=== PATIENT | female | born 1940 | race Caucasian/White ===

== ENCOUNTER 2021-07-06 11:33 | Inpatient (IN) | payer MEDICARE, MEDICAID, SELFPAY ==
[2021-07-06 11:34] VITALS: BP 113/57; PULSE 86; RESP 15; TEMP 36.4; O2SAT 93
--- NOTE | 2021-07-06 12:35 | CT_ITS ---
STUDY: CT ABDOMEN AND PELVIS WITH CONTRAST REASON FOR EXAM: Female, 81 years old. Chronic diarrhea. UTI. RADIATION DOSAGE (If Supplied By Facility): CTDIvol = ( 17.67 ) mGy, DLP = ( 557.08 ) mGycm TECHNIQUE: Transaxial images were obtained from the dome of the diaphragm to the symphysis pubis without oral contrast. IV 100mL Isovue-300 was administered. Sagittal and coronal images were reconstructed. Individualized dose optimization techniques were used for this CT. COMPARISON: None. FINDINGS: Increased markings with areas of confluence in both lower lobes suggestive of either atelectasis and/or scarring. The visualized portions of the heart are within normal limits. Mild degree of central intrahepatic biliary ductal dilatation. Normal gallbladder and extrahepatic biliary system. 5 mm cyst in the superior aspect of the spleen. There is also a 3.1 cm x 2.6 cm cyst in the anterior midportion of the spleen. There is diffuse atrophy of the pancreas. Normal bilateral adrenal glands. Normal right kidney. Normal left kidney. There is a small hiatal hernia. Diffuse mural thickening of the small bowel loops more prominent in the proximal small bowel loops. There is also evidence of thickening of the left hemicolon suggestive of colitis. The appendix is visualized and appears normal. There is diffuse atherosclerotic calcification of the abdominal aorta and its major visceral fractures, without a demonstrated aneurysm. Normal inferior vena cava. Normal retroperitoneum. Normal urinary bladder. Calcified fibroid uterus. Normal abdominal wall. There are diffuse degenerative changes of the visualized lumbar spine. Status post right total hip replacement. CT/Abdomen/Pelvis W IV Cont ONLY IMPRESSION: Diffuse thickening of the small bowel wall more prominent within jejunal loops. Findings in keeping with colitis of the left hemicolon. Vascular cause should be ruled out. Electronically Signed: Linus Jara MD at 14:10 EST ,
--- NOTE | 2021-07-06 12:37 | ED.VIS.GI ---
HPI HPI - GI History of Present Illness Chief Complaint: Diarrhea Narrative Narrative: Patient presents with her daughter because of diarrhea that she is had for months. She states that she has multiple episodes of loose to watery stool. This is caused her to become weak. Of note, she was recently seen at [facility] on Monday, 3 days ago and placed on antibiotics for urinary tract infection. However, patient has been having multiple episodes of diarrhea for the past few months even before she started antibiotics. Her last dose of antibiotics was in March of last year prior to being put on them this Monday. She denies any fevers or chills but has crampy abdominal pain prior to having an episode of diarrhea. She was going to see the arc welder apprentice, Dr. Alexis, today, but went to the bathroom and had a few episodes of stooling. Her daughter thought that maybe her stool was dark or black. They deny that she has had any hematemesis. No problems with urination. They states that they never saw gastroenterology but instead came here because of her multiple stooling episodes. PFSH PFSH Allergy/AdvReac Type Severity Reaction Status Date / Time No Known Allergies Allergy Verified 07/06/21 11:37 Social History Smoking Status: Unknown if ever smoked ROS ROS ED ROS Narrative Constitutional: No fever, no chills. Generalized weakness. HEENT: No sore throat. No neck pain. No loss of vision. No rhinorrhea. Cardiovascular: No chest pain. No palpitations. No pedal edema. Respiratory: No cough, no shortness of breath. Abdominal: Crampy abdominal pain prior to stooling. No nausea. No vomiting. Multiple episodes of diarrhea over the last few months, at least 3 today. Genitourinary: No dysuria. No hematuria. Musculoskeletal: No myalgias. No arthralgias. Neurologic: No headaches. No dizziness. No lightheadedness. Skin: No rash. No change in color. Psychiatric: No depression. No anxiety. EXAM Physical Exam Narrative Exam Narrative: Afebrile. Vital signs noted. HEENT: Normocephalic. Atraumatic. PERRL, EOMI. Neck soft and supple. No point tenderness or step off. Cardiovascular: Regular rate and rhythm. No murmurs, rubs, or gallops appreciated. Respiratory: No tachypnea. Lungs clear to auscultation bilaterally. Gastrointestinal: Abdomen soft, nontender, with normoactive bowel sounds. No rebound or guarding. Neurological: Awake. Alert. Oriented to person and place. Nonfocal, nonlateralizing. Skin: No rash. Normal color. No pallor. Musculoskeletal: No pedal edema. Full range of motion extremities. Const Vital Signs: 07/06/21 11:34 Temperature 97.6 F L Temperature Source Temporal Pulse Rate 86 Respiratory Rate 15 Blood Pressure 113/57 L Blood Pressure Mean 75 Pulse Ox 93 Oxygen Delivery Method Room Air MDM MDM MDM Narrative Medical decision making narrative: Comprehensive work-up was pursued. I will check her for dehydration but she is not tachycardic. I will check her for an electrolyte abnormality. If she produces a stool sample will be checked for fecal occult blood, ova and parasites, C. difficile, and enteric stool pathogen panel will also be sent. She was started on normal saline 125 mL/h. CBC shows normal white count of 6.6, hemoglobin normal at 14.6. She has a sodium of 144, potassium slightly low at 3.2 with a chloride of 114. BUN low at 4 with a normal creatinine of 0.77. Lipase normal at 99. CT of the abdomen and pelvis does show small bowel wall mural thickening most present in the jejunum. She also has left hemicolonic colitis. They suggest vascular rule out, and I had obtained a lactic acid which is normal at 0.9. Urinalysis shows no evidence of infection. As she was in his office today, I discussed patient with Dr. Alexis. He suggests hydrocortisone 100 mg every 8 hours and admission by the hospitalist for GI consultation. I discussed patient with Dr. Pang. She will be admitted to the general medical floor in stable condition. Lab Data Attestation: I reviewed the patient's lab results. Labs: Laboratory Results - last 24 hr 07/06/21 07/06/21 07/06/21 12:56 12:56 12:56 WBC 6.6 RBC 4.89 Hgb 14.6 Hct 44.6 MCV 91.2 MCH 29.9 MCHC 32.7 RDW Std Deviation 47.3 H RDW Coeff of Jens 14.0 Plt Count 203 MPV 10.9 Immature Gran % (Auto) 0.300 Neut % (Auto) 68.3 Lymph % (Auto) 18.7 L [place] % (Auto) 10.9 H Eos % (Auto) 1.2 Baso % (Auto) 0.6 Absolute Neuts (auto) 4.5 Absolute Lymphs (auto) 1.23 Nucleated RBC % 0 Sodium 144 Potassium 3.2 L Chloride 114 H Carbon Dioxide 27.0 Anion Gap 3 L BUN 4 L Creatinine 0.77 Estim Creat Clear Calc 0.00 Est GFR (MDRD) Af Amer 93 Est GFR (MDRD) Non-Af 77 BUN/Creatinine Ratio 5.2 L Glucose 99 Lactic Acid 0.9 Calcium 9.3 Total Bilirubin 0.40 AST 20 ALT 14 Alkaline Phosphatase 66 Total Protein 5.9 L Albumin 2.8 L Globulin 3.1 Albumin/Globulin Ratio 0.9 Lipase 99 Urine Color Urine Clarity Urine pH Ur Specific [place] Urine Protein Urine Glucose (UA) Urine Ketones Urine Occult Blood Urine Nitrite Urine Bilirubin Urine Urobilinogen Ur Leukocyte Esterase Urine RBC Urine WBC Ur Squamous Epith Cells Urine Bacteria Urine Mucus 07/06/21 14:09 WBC RBC Hgb Hct MCV MCH MCHC RDW Std Deviation RDW Coeff of Jens Plt Count MPV Immature Gran % (Auto) Neut % (Auto) Lymph % (Auto) [place] % (Auto) Eos % (Auto) Baso % (Auto) Absolute Neuts (auto) Absolute Lymphs (auto) Nucleated RBC % Sodium Potassium Chloride Carbon Dioxide Anion Gap BUN Creatinine Estim Creat Clear Calc Est GFR (MDRD) Af Amer Est GFR (MDRD) Non-Af BUN/Creatinine Ratio Glucose Lactic Acid Calcium Total Bilirubin AST ALT Alkaline Phosphatase Total Protein Albumin Globulin Albumin/Globulin Ratio Lipase Urine Color Yellow Urine Clarity Clear Urine pH 7.0 Ur Specific [place] 1.010 Urine Protein Negative Urine Glucose (UA) Normal Urine Ketones Negative Urine Occult Blood Negative Urine Nitrite Negative Urine Bilirubin Negative Urine Urobilinogen Normal Ur Leukocyte Esterase Negative Urine RBC 0 SEEN Urine WBC 0 SEEN Ur Squamous Epith Cells 0-5 SEEN Urine Bacteria RARE Urine Mucus RARE Radiography Diagnostic Testing: Clinical Impression(s) from Imaging Studies Abdomen/Pelvis CT 07/06/21 12:35 IMPRESSION: Diffuse thickening of the small bowel wall more prominent within jejunal loops. Findings in keeping with colitis of the left hemicolon. Vascular cause should be ruled out. Electronically Signed: Linus Jara MD at 14:10 EST , Discharge Plan Dx/Rx/DC Orders Clinical Impression: Colitis, Diarrhea, Hypokalemia, Generalized weakness, Mural thickening of small intestine Disposition Disposition: Acute Care Hospital [facility]
[2021-07-06] MEDS: 0.9% Normal Saline 1,000 ML 125 ML IV ×2 (12:54→20:24)
[2021-07-06 13:12] LABS: Absolute Lymphocyte Count 1.23 X10^3/uL (0.83-4.51); Absolute Neutrophil Count 4.5 X10^3/uL (2.0-7.7); Basophil# 0.04 X10^3/uL; Basophil% 0.6 % (0-1); Eosinophil# 0.08 X10^3/uL; Eosinophils% 1.2 % (0-5); Hematocrit 44.6 % (37-47); Hemoglobin 14.6 g/dL (12.0-15.0); Lymphocyte # 1.23 X10^3/ul (0.83-4.51); Lymphocyte % 18.7 % (19-41); Mean Corp Hgb Conc 32.7 g/dL (32-36); Mean Corpuscular Hgb 29.9 pg (27.0-32.0); Mean Corpuscular Volume 91.2 fL (81-99); Mean Platelet Vol. 10.9 fl (6.2-12.0); Monocyte# 0.72 X10^3/uL; Monocyte% 10.9 % (0-10); NRBC Flagged by Analyzer 0 % (0-5); Neutrophil # 4.49 X10^3/uL (2.7-7.7); Neutrophil % 68.3 % (47-70); Platelet Count 203 K/mm3 (150-450); RBC Distribution Width SD 47.3 fl (35.1-43.9); Red Blood Count 4.89 M/mm3 (4.2-5.4); White Blood Count 6.6 K/mm3 (4.4-11.0)
[2021-07-06 13:24] LABS: ALB/GLOB Ratio 0.9 RATIO (0.9-2.4); AST(SGOT) 20 U/L (15-37); Alanine Aminotransfer ALT/SGPT 14 U/L (13-56); Albumin, Serum 2.8 g/dL (3.2-5.0); Alkaline Phosphatase 66 U/L (45-117); Anion Gap 3 (5-15); BUN 4 mg/dL (7-18); BUN/Creat Ratio 5.2 RATIO (10-20); Calcium,Total 9.3 mg/dL (8.5-10.1); Chloride 114 mmol/L (98-107); Creatinine, Serum 0.77 mg/dL (0.55-1.02); EST Glomerular Filtration Rate 77 mL/min (>60); Est Glom Filt Rate - Afr Amer 93 mL/min (>60); Globulin 3.1 g/dL (2.2-4.2); Glucose 99 mg/dL (74-106); Lipase 99 U/L (73-393); Potassium 3.2 mmol/L (3.5-5.1); Protein, Total 5.9 g/dL (6.4-8.2); Sodium Level 144 mmol/L (136-145)
[2021-07-06 13:34] LABS: Lactic Acid 0.9 mmol/L (0.4-1.9)
[2021-07-06 14:14] LABS: Color, Urine Yellow (Yellow); Glucose, Dipstick Normal (Normal); Ketone-Dipstick Negative (Negative); Leukocyte Esterase-Dipstick Negative /ul (Negative); Nitrite-Dipstick Negative (Negative); Occult Blood-Urine Negative /ul (Negative); Protein-Dipstick Negative (Negative); Red Blood Cells-Urine 0 SEEN /hpf (0-5); Urine Bilirubin Dipstick Negative (Negative); Urine Clarity Clear (Clear); Urine Urobilinogen Normal (Normal); White Blood Cells 0 SEEN /hpf (0-5)
[2021-07-06 14:21] LABS: Bacteria RARE /hpf (None Seen); Mucous, Urine RARE /hpf (<or=2+); Squamous Epithelial Cells - UA 0-5 SEEN /hpf (5-10)
--- NOTE | 2021-07-06 14:53 | ED.RN ---
ATTEMPTED TO CALL GOVIND BERNABE FOR MEDICATION LIST, NO RESPONSE
[2021-07-06] MEDS: Hydrocortisone Sod Succinate 100 MG/2 ML Vial IV (15:13)
--- NOTE | 2021-07-06 15:18 | PCM.HP.STD ---
HPI - General HPI Narrative ABRAHAM VALENZUELA, is a 81 F with a past medical history as outlined who presents via the ED on 07/06/2021 with a complaint of intractable diarrhea. Patient states she has been having diarrhea for about 2 months now. She was seen in the ED recently and sent home after she was referred to gastroenterology. She went see gastroenterology today but could not even see the massotherapist because she kept on having diarrhea whilst at the office. She says she had about 7 episodes of diarrhea was waiting for the massotherapist before she was sent to the ED. She denies any assisted nausea or vomiting and denies any blood in the stool. Patient states she is lost a lot of weight. She denies any recent travels and has not had diarrhea like this before. She denies being on any antibiotics recently. Review of symptoms otherwise negative. Vitals in the ED were blood pressure of 113/57 with pulse rate of 86, respiratory rate of 15 and temperature of 97.6 Fahrenheit. She was saturating at 93% on room air. CBC showed WBC of 6.6 and hemoglobin of 14.6 as well as platelets of 203. Chemistry showed sodium of 144 and potassium of 3.2 as well as bicarb of 27. Creatinine was 0.77. Urinalysis showed no evidence of UTI. CT of the abdomen and pelvis showed diffuse thickening of the small bowel wall more prominent within jejunal loops with findings in keeping with colitis of the left hemicolon. Lactic acid done was normal. She has been admitted to be managed for intractable diarrhea due to colitis. Gastroenterology to be consulted. [facility] Medical History Seizures Smoker Allergy/AdvReac Type Severity Reaction Status Date / Time No Known Allergies Allergy Verified 07/06/21 11:37 Social History Smoking Status: Current some day smoker tobacco type: cigarettes ROS Constitutional Constitutional: Reports anorexia, change in weight, fatigue, malaise and weakness; Denies chills, fever(s) or night sweats Eyes Eyes: Denies change in vision ENT HEENT: Denies headache(s), nasal congestion or sore throat Cardiovascular Cardiovascular: Denies chest pain, dyspnea on exertion, edema, lightheadedness, orthopnea, palpitations, paroxysmal nocturnal dyspnea, rapid heart rate or syncope Respiratory/Chest Respiratory/Chest: Denies cough, dyspnea, productive cough, shortness of breath at rest or shortness of breath with exertion Gastrointestinal Gastrointestinal: Reports diarrhea; Denies abdominal pain, coffee ground emesis, constipation, dyspepsia, hematemesis, hematochezia, loose stools, melena, nausea or vomiting Genitourinary Genitourinary: Denies burning urination, dysuria or urinary frequency Musculoskeletal Musculoskeletal: Denies arthralgias or joint pain Neurologic Neurologic: Denies confusion, dizziness or focal weakness Psychiatric Psychiatric: Denies anxiety Hematologic/Lymphatic Hematologic/Lymphatic: Denies anemia Vital Signs Vital Signs Vital Signs: 07/06/21 11:34 Temperature 97.6 F L Temperature Source Temporal Pulse Rate 86 Respiratory Rate 15 Blood Pressure 113/57 L Blood Pressure Mean 75 Pulse Ox 93 Oxygen Delivery Method Room Air Weight Weight: 0 oz Body Mass Index (BMI) 0.0 Physical Exam Const alert, oriented x3 and no apparent distress Constitutional Narrative: cachectic General Appearance: cooperative HEENT normocephalic and hearing grossly normal bilaterally HEENT Narrative: dry oral mucosa Eyes PERRL, EOMs intact bilaterally and conjunctivae normal Neck no lymphadenopathy, supple and no JVD Resp normal respiratory effort, no retractions and no use of accessory muscles Cardio regular rate, regular rhythm and S1 normal heart sound GI normal to inspection, nondistended, normoactive bowel sounds, soft to palpation, non-tender and non-distended Extremity normal to inspection, full ROM and no clubbing, cyanosis or edema Peripheral Pulses: Yes pulses 2+ throughout Skin no rashes or lesions noted Neuro oriented x3, CN's II-XII intact bilaterally and moves all extremities Sensorium / Orientation: awake and alert Psych affect normal Results Lab / Micro Data Result Diagrams: 07/06/21 12:56 07/06/21 12:56 Labs: Laboratory Results - last 24 hr 07/06/21 12:56: WBC 6.6, RBC 4.89, Hgb 14.6, Hct 44.6, MCV 91.2, MCH 29.9, MCHC 32.7, RDW Std Deviation 47.3 H, RDW Coeff of Jens 14.0, Plt Count 203, MPV 10.9, Immature Gran % (Auto) 0.300, Neut % (Auto) 68.3, Lymph % (Auto) 18.7 L, [place] % (Auto) 10.9 H, Eos % (Auto) 1.2, Baso % (Auto) 0.6, Absolute Neuts (auto) 4.5, Absolute Lymphs (auto) 1.23, Nucleated RBC % 0 07/06/21 12:56: Sodium 144, Potassium 3.2 L, Chloride 114 H, Carbon Dioxide 27.0, Anion Gap 3 L, BUN 4 L, Creatinine 0.77, Estim Creat Clear Calc 0.00, Est GFR (MDRD) Af Amer 93, Est GFR (MDRD) Non-Af 77, BUN/Creatinine Ratio 5.2 L, Glucose 99, Calcium 9.3, Total Bilirubin 0.40, AST 20, ALT 14, Alkaline Phosphatase 66, Total Protein 5.9 L, Albumin 2.8 L, Globulin 3.1, Albumin/Globulin Ratio 0.9, Lipase 99 07/06/21 12:56: Lactic Acid 0.9 07/06/21 14:09: Urine Color Yellow, Urine Clarity Clear, Urine pH 7.0, Ur Specific [place] 1.010, Urine Protein Negative, Urine Glucose (UA) Normal, Urine Ketones Negative, Urine Occult Blood Negative, Urine Nitrite Negative, Urine Bilirubin Negative, Urine Urobilinogen Normal, Ur Leukocyte Esterase Negative, Urine RBC 0 SEEN, Urine WBC 0 SEEN, Ur Squamous Epith Cells 0-5 SEEN, Urine Bacteria RARE, Urine Mucus RARE Radiology Impression Abdomen/Pelvis CT 07/06/21 12:35 IMPRESSION: Diffuse thickening of the small bowel wall more prominent within jejunal loops. Findings in keeping with colitis of the left hemicolon. Vascular cause should be ruled out. Electronically Signed: Linus Jara MD at 14:10 EST , Assessment & Plan Assessment/Plan (1) Colitis: (2) Diarrhea: (3) Hypokalemia: (4) Generalized weakness: PLAN: #Acute colitis due to intractable diarrhea says diarrhea has been going on for ~ 2 months now admit to med surg hydrate with IVF NS consult GI keep on clear liquid diet for now start on IV hydrocortisone 100mg every 8 hours as per GI recommendation check stool for enteric pathogen, stool for ova and parasites. #Intractable diarrhea: management as above #Hypokalemia: K is 3.2. Will replace and trend #Debility due to intractable diarrhea: consult PT/OT. Fall precautions DVT prophylaxis: lovenox Code status: full code. Patient counseled extensively about different types of CODE STATUS including full code, DNR CCA and DNR CCA. Patient elects to be full code. Total oiog-ni-rucd time 17 minutes. Charges/Coding Visit Charges Inpatient E&M: 62130 Init Hosp L2 Procedures Hospitalists Procedures: 28714 Advncd Care Plan 30 Min
[2021-07-06 15:23] VITALS: BP 108/55; PULSE 71; RESP 18; TEMP 36.7; O2SAT 99
[2021-07-06 15:59] VITALS: BMI 22.0
[2021-07-06 16:08] VITALS: BP 140/59; PULSE 72; RESP 16; TEMP 37.1; O2SAT 94
--- NOTE | 2021-07-06 16:36 | EX.PCM.CON.G ---
HPI Consult Data Date of Consult: 07/06/21 HPI Narrative HPI Narrative: ABRAHAM VALENZUELA, is a 81 F who [facility] [place] [facility] with [facility] diarrhea. Her diarrhea started approximately 5 months ago. She states that she has multiple episodes of loose to watery stool. This is caused her to become weak. Of note, she was recently seen at [facility] on Monday, 3 days ago and placed on antibiotics for urinary tract infection. However, patient has been having multiple episodes of diarrhea for the past few months even before she started antibiotics. Her last dose of antibiotics was in March of last year prior to being put on them this Monday. She denies any fevers or chills but has crampy abdominal pain prior to having an episode of diarrhea. She came into the office for an evaluation however she had multiple episodes of diarrhea and the office bathroom and was not able to be fully assessed. I did however have a long conversation with her daughter regarding her multiple episodes of diarrhea. Her daughter thought that maybe her stool was dark or black. They deny that she has had any hematemesis. No problems with urination. They states that they never saw gastroenterology but instead came here because of her multiple stooling episodes. [facility] Medical History Seizures Smoker Home Medications calcium carbonate 600 mg PO BID 07/06/21 [History Last Taken 07/06/21] calcium citrate [Citracal] 200 mg PO TID 07/06/21 [History Last Taken 07/06/21] ciprofloxacin HCl [Cipro] 500 mg PO Q12H 07/06/21 [History Last Taken 07/06/21] metronidazole [Flagyl] 500 mg PO Q12H 07/06/21 [History Last Taken 07/06/21] potassium chloride [Klor-Con M20] 20 meq PO DAILY 07/06/21 [History Last Taken 07/06/21] Allergy/AdvReac Type Severity Reaction Status Date / Time No Known Allergies Allergy Verified 07/06/21 11:37 Social History Smoking Status: Current some day smoker tobacco type: cigarettes ROS Gastrointestinal Gastrointestinal: Reports diarrhea Physical Exam Const alert General Appearance: cooperative Orientation / Consciousness: oriented to person HEENT hearing grossly normal bilaterally Head and Scalp: normal to inspection Face and Sinus: face symmetric Nose: external nose normal Mouth: oral and palatal mucosa normal Eyes conjunctivae normal General Eye: normal appearance of both eyes Neck full ROM General: normal visual inspection Lymph Lymphatic: no lymphadenopathy noted Chest inspection of chest normal and palpation of chest normal Chest: symmetrical chest wall rise Resp normal respiratory effort Effort and Inspection: able to speak in complete sentences Cardio regular rate GI non-distended Percussion: normal to percussion Rectal Exam: deferred Neuro Speech: speech normal Gait (Neuro): normal gait Lab / Micro Data Result Diagrams: 07/06/21 12:56 07/06/21 12:56 Labs: Laboratory Results - last 24 hr 07/06/21 12:56: WBC 6.6, RBC 4.89, Hgb 14.6, Hct 44.6, MCV 91.2, MCH 29.9, MCHC 32.7, RDW Std Deviation 47.3 H, RDW Coeff of Jens 14.0, Plt Count 203, MPV 10.9, Immature Gran % (Auto) 0.300, Neut % (Auto) 68.3, Lymph % (Auto) 18.7 L, [place] % (Auto) 10.9 H, Eos % (Auto) 1.2, Baso % (Auto) 0.6, Absolute Neuts (auto) 4.5, Absolute Lymphs (auto) 1.23, Nucleated RBC % 0 07/06/21 12:56: Sodium 144, Potassium 3.2 L, Chloride 114 H, Carbon Dioxide 27.0, Anion Gap 3 L, BUN 4 L, Creatinine 0.77, Estim Creat Clear Calc 0.00, Est GFR (MDRD) Af Amer 93, Est GFR (MDRD) Non-Af 77, BUN/Creatinine Ratio 5.2 L, Glucose 99, Calcium 9.3, Total Bilirubin 0.40, AST 20, ALT 14, Alkaline Phosphatase 66, Total Protein 5.9 L, Albumin 2.8 L, Globulin 3.1, Albumin/Globulin Ratio 0.9, Lipase 99 07/06/21 12:56: Lactic Acid 0.9 07/06/21 14:09: Urine Color Yellow, Urine Clarity Clear, Urine pH 7.0, Ur Specific [place] 1.010, Urine Protein Negative, Urine Glucose (UA) Normal, Urine Ketones Negative, Urine Occult Blood Negative, Urine Nitrite Negative, Urine Bilirubin Negative, Urine Urobilinogen Normal, Ur Leukocyte Esterase Negative, Urine RBC 0 SEEN, Urine WBC 0 SEEN, Ur Squamous Epith Cells 0-5 SEEN, Urine Bacteria RARE, Urine Mucus RARE Radiology Impression Abdomen/Pelvis CT 07/06/21 12:35 IMPRESSION: Diffuse thickening of the small bowel wall more prominent within jejunal loops. Findings in keeping with colitis of the left hemicolon. Vascular cause should be ruled out. Electronically Signed: Linus Jara MD at 14:10 EST , Assessment & Plan Assessment/Plan (1) Diarrhea: PLAN: The differential diagnosis for diarrhea does include enterocolitis (infectious greater than autoimmune), severe celiac disease, infectious colitis, inflammatory bowel disease, microscopic colitis, lymphocytic colitis, collagenous colitis. Recommend to check ESR, CRP, LDH. Her lactate is normal. Also recommend to check ANCA for small vessel vasculitis, DORSI, complement levels, immunoglobulin levels. We empirically gave her steroids in the ED and I will start her on antibiotic therapy while we await for stool cultures and C. difficile. Charges/Coding Visit Charges Inpatient E&M: 61067 Init Hosp L2
[2021-07-06 17:00] VITALS: O2SAT 93
[2021-07-06 17:38] LABS: CRP 5.44 mg/L (0.0-3.0); LDH 321 U/L (84-246)
[2021-07-06 17:51] LABS: Erythrocyte Sedimentation Rate 6 mm/hr (0-30)
[2021-07-06] MEDS: Electrolyte Solution/Peg's 4000 ML PO (17:59)
[2021-07-06 21:58] VITALS: BP 116/56; PULSE 72; RESP 18; TEMP 36.4; O2SAT 93
[2021-07-06] MEDS: Potassium Chloride Oral Tablet 20 MEQ PO (22:15)
[2021-07-07] VITALS (11 sets, daily range): BP systolic 94–148; BP diastolic 38–84; PULSE 63–88; RESP 16–18; TEMP 36.1–36.5; O2SAT 92–98
--- NOTE | 2021-07-07 | COLBX_PTH ---
PATIENT: ABRAHAM VALENZUELA LOC: MS3 U#:[id number] AGE/SX: 81/F [place] [facility] [place]: Dr. Tonja Ramires DO : 1940 BED: 1 DIS: 07/08/2021 SPEC #: [id number] RECD: 07/07/21 13:20 STATUS: WENDI JUAREZ #: [id number] BETI: 07/07/21 00:[address]: Frank Alexis DEPT: SURGICAL PATHOLOGY RECD BY: Walt Marks ENTERED: 07/07/21 13:21 SP TYPE: COLON BX OTHR DR: DO Dr. Melissa Cuevas MD Tissues: A - COLON BIOPSY B - Sigmoid colon biopsy Procedures: Trichrome (control) Special Stain Group II Surgery Specimen Level IV Comments: @ Ordering doctor for GISELA edited from to @ by SHADE at 07/07/21 1504 @ Submitting doctor edited from to @ by XUOD at 07/07/21 1504 HEADER OPERATION: Colonoscopy, EGD ([facility] [place]) PRE-OP DIAGNOSIS: Diarrhea TISSUE SUBMITTED: A ? Random colonic biopsy, B ? Sigmoid polyp biopsy MICROSCOPIC DIAGNOSIS A. Colon, random biopsy: Fragments of colonic mucosa with changes consistent with collagenous colitis. See comment. B. Sigmoid polyp, biopsy: Fragments of colonic mucosa with changes consistent with collagenous colitis. See comment. SJ:dru 07/08/2021 COMMENT A. Trichrome stain with matched control is used in the evaluation of the specimen and shows extensive thickening of subepithelial collagen band consistent with collagenous colitis. B. Trichrome stain with matched control is used in the evaluation of the specimen and shows extensive thickening of subepithelial collagen band consistent with collagenous colitis. Hyperplastic or adenomatous changes are not seen. MICROSCOPIC DESCRIPTION Slides are reviewed. GROSS DESCRIPTION A - Received in fixative is one container labeled with the patient's name and designated random colonic biopsy. The specimen consists of multiple irregular fragments of light somers soft tissue that in aggregate measure 1.5 x 0.6 x 0.1 cm. The specimen is totally submitted in one cassette. B - Received in fixative is one container labeled with the patient's name and designated sigmoid polyp biopsy. The specimen consists of one irregular fragment of light somers soft tissue that measures 0.3 x 0.2 x 0.1 cm. The specimen is totally submitted in one cassette. / SJ:rg 07/07/2021 TC:3 CPT: 43087 x2, 42839 x2
[2021-07-07] MEDS: 0.9% Normal Saline 1,000 ML 125 ML IV (03:14)
[2021-07-07 05:55] LABS: Absolute Lymphocyte Count 1.34 X10^3/uL (0.83-4.51); Basophil# 0.03 X10^3/uL; Basophil% 0.4 % (0-1); Eosinophil# 0.02 X10^3/uL; Eosinophils% 0.3 % (0-5); Hematocrit 41.9 % (37-47); Hemoglobin 14.1 g/dL (12.0-15.0); Lymphocyte # 1.34 X10^3/ul (0.83-4.51); Lymphocyte % 18.7 % (19-41); Mean Corp Hgb Conc 33.7 g/dL (32-36); Mean Corpuscular Hgb 29.9 pg (27.0-32.0); Mean Platelet Vol. 10.8 fl (6.2-12.0); Monocyte# 0.73 X10^3/uL; Monocyte% 10.2 % (0-10); NRBC Flagged by Analyzer 0 % (0-5); Neutrophil # 5.04 X10^3/uL (2.7-7.7); Neutrophil % 70.1 % (47-70); Platelet Count 211 K/mm3 (150-450); RBC Distribution Width CV 13.7 % (11.6-14.6); RBC Distribution Width SD 44.7 fl (35.1-43.9); Red Blood Count 4.71 M/mm3 (4.2-5.4); White Blood Count 7.2 K/mm3 (4.4-11.0)
[2021-07-07 06:25] LABS: Anion Gap 8 (5-15); BUN 3 mg/dL (7-18); BUN/Creat Ratio 6.4 RATIO (10-20); Calcium,Total 7.5 mg/dL (8.5-10.1); Chloride 112 mmol/L (98-107); Creatinine, Serum 0.47 mg/dL (0.55-1.02); EST Glomerular Filtration Rate 135 mL/min (>60); Est Glom Filt Rate - Afr Amer 163 mL/min (>60); Glucose 112 mg/dL (74-106); Potassium 2.3 mmol/L (3.5-5.1); Sodium Level 143 mmol/L (136-145)
[2021-07-07] MEDS: Potassium Chloride 10mEq/100mL 10 MEQ/100 ML IV.SOLN. 100 MEQ IV BOLUS ×6 (06:52→17:59)
[2021-07-07] MEDS: Potassium Chloride Oral Tablet 20 MEQ 40 MEQ PO (06:55)
[2021-07-07 07:37] LABS: Magnesium 1.9 mg/dL (1.6-2.6)
[2021-07-07] MEDS: Potassium Chloride Oral Tablet 20 MEQ PO (07:57)
--- NOTE | 2021-07-07 09:25 | CASEMGMT ---
Addendum entered by Lizette Weber 07/07/21 15:31: MONA placed a call to pt's daughter Deanna and introduced self and role at [facility]. Deanna confirms pt came from [facility] and plan is to return at discharge. Addendum entered by Lizette Weber 07/07/21 12:22: MONA received call from Constance at [facility]. Rhoda confirms pt came from [facility] and pt can return. Pt will need COVID test on day of discharge. MONA attempted to meet with pt. Pt currently off floor. Addendum entered by Lizette Weber 07/07/21 11:25: MONA faxed updated clinicals to [facility]. Original Note: Social Work Note MONA reviewed chart. Pt is listed as being from [facility]. MONA placed a call to [facility], left message for admissions to call this worker back. Lizette Weber DRAW FIRE OPERATOR, NEWSPAPER JOURNALIST
[2021-07-07] MEDS: Ciprofloxacin 400 MG/200 ML BAG 200 MG IV ×2 (10:02→22:45)
[2021-07-07] MEDS: Menthol/Lanolin/Calamine/Znox 113 GM Tube 1 APPLIC TOPICAL ×4 (10:05→20:19)
[2021-07-07 10:21] LABS: Anion Gap 6 (5-15); BUN 2 mg/dL (7-18); BUN/Creat Ratio 3.7 RATIO (10-20); Calcium,Total 7.7 mg/dL (8.5-10.1); Chloride 113 mmol/L (98-107); Creatinine, Serum 0.54 mg/dL (0.55-1.02); EST Glomerular Filtration Rate 114 mL/min (>60); Est Glom Filt Rate - Afr Amer 138 mL/min (>60); Glucose 94 mg/dL (74-106); Potassium 2.8 mmol/L (3.5-5.1); Sodium Level 144 mmol/L (136-145)
[2021-07-07] MEDS: Epinephrine (1 mg/ml) 1 MG/ML VIAL (12:02)
[2021-07-07] MEDS: 0.9% Normal Saline (Pres. free 10 ML Vial (12:02)
--- NOTE | 2021-07-07 12:12 | OP.CCLET_ITS ---
01/26/2022 Lady Boswell Re : Upper GI endoscopy procedure for Kimberly Vergara Dear Andreia This procedure was performed on Wednesday, July 07, 2021. My impressions and recommendations are as follows: Impressions : - Bleeding esophageal ulcer. Injected. Treated with a heater probe. - Medium-sized hiatal hernia. - Normal first portion of the duodenum. - No specimens collected. Recommendations : - Return [facility] to [facility] for [facility] care. - Clear liquid diet today. - Give Protonix (pantoprazole): initiate therapy with 80 mg IV bolus, then 8 mg/hr IV by continuous infusion. - Continue present medications. My findings are described in the full procedure note, which is enclosed. If I can be of further assistance, please feel free to contact me at . Sincerely, Frank Friend, 07/07/2021 12:11:56 PM This report has been signed electronically.
--- NOTE | 2021-07-07 12:12 | OP.EGD_ITS ---
Patient Name: Kimberly Vergara Procedure Date: 07/07/2021 11:20 AM Date of : 1940 Age: 81 Procedure: Upper GI endoscopy Indications: Iron deficiency anemia, Hematochezia Providers: Frank Alexis DO Medicines: See the Anesthesia note for documentation of the administered medications Patient Profile: This is an 81 year old female. Refer to note in patient chart for documentation of history and physical. Patient has symptoms of acute epigastric abdominal pain. Complications: No immediate complications. Procedure: Pre-Anesthesia Assessment: - Prior to the procedure, a History and Physical was performed, and patient medications and allergies were reviewed. The risks and benefits of the procedure and the sedation options and risks were discussed with the patient. All questions were answered and informed consent was obtained. Patient identification and proposed procedure were verified by the physician in the pre-procedure area. Mental Status Examination: alert and oriented. Airway Examination: normal oropharyngeal airway and neck mobility. Respiratory Examination: clear to auscultation. CV Examination: normal. Prophylactic Antibiotics: The patient does not require prophylactic antibiotics. Prior Anticoagulants: The patient has taken no previous anticoagulant or antiplatelet agents. After reviewing the risks and benefits, the patient was deemed in satisfactory condition to undergo the procedure. The anesthesia plan was to use moderate sedation / analgesia (conscious sedation). Immediately prior to administration of medications, the patient was re-assessed for adequacy to receive sedatives. The heart rate, respiratory rate, oxygen saturations, blood pressure, adequacy of pulmonary ventilation, and response to care were monitored throughout the procedure. The physical status of the patient was re-assessed after the procedure. After obtaining informed consent, the endoscope was passed under direct vision. Throughout the procedure, the patient's blood pressure, pulse, and oxygen saturations were monitored continuously. The Colonoscope was introduced through the mouth, and advanced to the second part of duodenum. The upper GI endoscopy was accomplished without difficulty. The patient tolerated the procedure well. Moderate Sedation: Moderate (conscious) sedation was administered by the endoscopy nurse and supervised by the endoscopist. The patient's oxygen saturation, heart rate, blood pressure and response to care were monitored. Total physician intraservice time was 15 minutes. Scope In: 11:53:29 AM Scope Out: 12:04:01 PM Total Procedure Duration Time 0 hours 10 minutes 32 seconds Findings: One cratered esophageal ulcer with spurting blood and stigmata of recent bleeding was found 24 to 25 cm from the incisors. The lesion was 3 mm in largest dimension. Area was successfully injected with 3 mL of a 1:10,000 solution of epinephrine for hemostasis. Coagulation for hemostasis using heater probe was successful. Estimated blood loss was minimal. A medium-sized hiatal hernia was present. The first portion of the duodenum was normal. Impression: - Bleeding esophageal ulcer. Injected. Treated with a heater probe. - Medium-sized hiatal hernia. - Normal first portion of the duodenum. - No specimens collected. Recommendation: - Return patient to [facility] for ongoing care. - Clear liquid diet today. - Give Protonix (pantoprazole): initiate therapy with 80 mg IV bolus, then 8 mg/hr IV by continuous infusion. - Continue present medications. Procedure Code(s): --- Professional --- 68423, Esophagogastroduodenoscopy, flexible, transoral; with control of bleeding, any method 68685, 59, Moderate sedation services provided by the same physician or other qualified health client care consultant performing the diagnostic or therapeutic service that the sedation supports, requiring the presence of an independent trained observer to assist in the monitoring of the patient's level of consciousness and physiological status; initial 15 minutes of intraservice time, patient age 5 years or older CPT copyright 2017 [employer]. All rights reserved. The codes documented in this report are preliminary and upon buggy loader review may be revised to meet current compliance requirements. Frank Alexis DO 07/07/2021 12:11:56 PM This report has been signed electronically. Number of Addenda: 1 Note Initiated On: 07/07/2021 11:20 AM Addendum Number: 1 Addendum Date: 01/26/2022 6:34:29 AM MAC was used as sedation for this procedure. Frank Alexis DO 01/26/2022 6:34:33 AM This report has been signed electronically.
--- NOTE | 2021-07-07 12:21 | PN.HOSP_ITS ---
Subjective Subjective Patient is not a great historian with her dementia history however she reports she is having a lot of stools that are liquid daily. When I asked her to specify more she indicated she was having 4-5 episodes of diarrhea a day and has been having this for at least 2 months. She denied any current pain however she did indicate she gets some crampy pain with prior and prior to her diarrhea. She does report stooling at night. Her daughter had indicated she had lost approximately 10 pounds. Patient is awaiting scopes later today. Objective Data Objective Data Vital Signs: Vital Signs Temp Pulse Resp BP Pulse Ox 97.7 F L 63 16 147/52 H 95 07/07/21 09:15 07/07/21 09:15 07/07/21 09:15 07/07/21 09:15 07/07/21 09:15 Oxygen Flow Rate (L/min) 2 Oxygen Delivery Method Nasal Cannula Weight: 56.5 kg Body Mass Index (BMI) 22.0 Intake & Output: Intake and Output for Last 24 Hours 07/05/21 07/06/21 07/07/21 23:59 23:59 23:59 Intake Total 3737.5 / 3737.5 1054.17 / 1054.17 Output Total 500 / 500 Balance 3237.5 / 3237.5 1054.17 / 1054.17 Lab / Micro Data Result Diagrams: 07/07/21 05:31 07/07/21 09:46 Labs: Laboratory Results - last 24 hr 07/06/21 12:56: WBC 6.6, RBC 4.89, Hgb 14.6, Hct 44.6, MCV 91.2, MCH 29.9, MCHC 32.7, RDW Std Deviation 47.3 H, RDW Coeff of Jens 14.0, Plt Count 203, MPV 10.9, Immature Gran % (Auto) 0.300, Neut % (Auto) 68.3, Lymph % (Auto) 18.7 L, [place] % (Auto) 10.9 H, Eos % (Auto) 1.2, Baso % (Auto) 0.6, Absolute Neuts (auto) 4.5, Absolute Lymphs (auto) 1.23, Nucleated RBC % 0 07/06/21 12:56: Sodium 144, Potassium 3.2 L, Chloride 114 H, Carbon Dioxide 27.0, Anion Gap 3 L, BUN 4 L, Creatinine 0.77, Estim Creat Clear Calc 0.00, Est GFR (MDRD) Af Amer 93, Est GFR (MDRD) Non-Af 77, BUN/Creatinine Ratio 5.2 L, Glucose 99, Calcium 9.3, Total Bilirubin 0.40, AST 20, ALT 14, Alkaline Phosphatase 66, Total Protein 5.9 L, Albumin 2.8 L, Globulin 3.1, Albumin/Globulin Ratio 0.9, Lipase 99 07/06/21 12:56: Lactic Acid 0.9 07/06/21 12:56: ESR 6 07/06/21 12:56: Lactate Dehydrogenase 321 H, C-React Prot Ext Range 5.44 H 07/06/21 14:09: Urine Color Yellow, Urine Clarity Clear, Urine pH 7.0, Ur Specific [place] 1.010, Urine Protein Negative, Urine Glucose (UA) Normal, Urine Ketones Negative, Urine Occult Blood Negative, Urine Nitrite Negative, Urine Bilirubin Negative, Urine Urobilinogen Normal, Ur Leukocyte Esterase Negative, Urine RBC 0 SEEN, Urine WBC 0 SEEN, Ur Squamous Epith Cells 0-5 SEEN, Urine Bacteria RARE, Urine Mucus RARE 07/07/21 05:31: WBC 7.2, RBC 4.71, Hgb 14.1, Hct 41.9, MCV 89.0, MCH 29.9, MCHC 33.7, RDW Std Deviation 44.7 H, RDW Coeff of Jens 13.7, Plt Count 211, MPV 10.8, Immature Gran % (Auto) 0.300, Neut % (Auto) 70.1 H, Lymph % (Auto) 18.7 L, [place] % (Auto) 10.2 H, Eos % (Auto) 0.3, Baso % (Auto) 0.4, Absolute Neuts (auto) 5.0, Absolute Lymphs (auto) 1.34, Nucleated RBC % 0 07/07/21 05:31: Sodium 143, Potassium 2.3 L*, Chloride 112 H, Carbon Dioxide 23.0, Anion Gap 8, BUN 3 L, Creatinine 0.47 L, Estim Creat Clear Calc 36.50, Est GFR (MDRD) Af Amer 163, Est GFR (MDRD) Non-Af 135, BUN/Creatinine Ratio 6.4 L, Glucose 112 H, Calcium 7.5 L 07/07/21 05:31: Magnesium 1.9 07/07/21 09:46: Sodium 144, Potassium 2.8 L, Chloride 113 H, Carbon Dioxide 25 .0, Anion Gap 6, BUN 2 L, Creatinine 0.54 L, Estim Creat Clear Calc 36.50, Est GFR (MDRD) Af Amer 138, Est GFR (MDRD) Non-Af 114, BUN/Creatinine Ratio 3.7 L, Glucose 94, Calcium 7.7 L Micro: Microbiology 07/06/21 22:05 Stool Stool Lactoferrin - Final 07/06/21 22:05 Stool Stool Occult Blood (JACK) - Final Radiography Diagnostic Testing: Radiology Impression Abdomen/Pelvis CT 07/06/21 12:35 IMPRESSION: Diffuse thickening of the small bowel wall more prominent within jejunal loops. Findings in keeping with colitis of the left hemicolon. Vascular cause should be ruled out. Electronically Signed: Linus Jara MD at 14:10 EST , Physical Exam Const alert, no apparent distress and average body habitus Constitutional Narrative: Elderly white male lying in bed in left side-lying, appears comfortable nontoxic, patient with some confusion but overall appears to be up-to-date on current plan of care HEENT head/scalp atraumatic and moist oral mucous membranes HEENT Narrative: Mallampati is 2, no thrush Head and Scalp: normocephalic Resp normal respiratory effort, no retractions, no use of accessory muscles and clear to auscultation bilaterally Auscultation: Negative for crackles, rales, rhonchi or wheezes Cardio regular rate, regular rhythm, S1 normal heart sound, S2 normal heart sound, no murmurs, no rub, no gallops, no clicks and no JVD GI normal to inspection, nondistended, normoactive bowel sounds, soft to palpation, non-tender and non-distended; Negative for hepatosplenomegaly Extremity normal to inspection and no clubbing, cyanosis or edema Peripheral Pulses: Yes pulses 2+ throughout Neuro CN's II-XII intact bilaterally, moves all extremities and no focal motor deficits Sensorium / Orientation: awake, alert, oriented to person, oriented to place and oriented to time Speech: speech normal Psych Psych Narrative: Affect is mildly flat Assessment & Plan Assessment/Plan (1) Colitis: (2) Diarrhea: (3) Hypokalemia: (4) Generalized weakness: (5) Mural thickening of small intestine: (6) Esophageal ulcer: PLAN: Persistent diarrhea -Lactoferrin is negative -CT done on admission showed diffuse thickening of the small bowel wall more prominent within the jejunal loops as well as colitis of the left hemicolon -Autoimmune/vasculitic work-up in progress -Steroids ordered in the emergency department per GIs recommendations -Cipro and Flagyl -C. difficile and enteric panel is pending -EGD and colonoscopy today -Decrease IV fluid rate to 50 cc/h Esophageal ulcer -During EGD 1 cratered esophageal ulcer with active bleeding and stigmata of recent bleeding was noted -Area was injected with 3 mL of epi and coagulation with heater probe for hemostasis was utilized -Good hemostasis commented on after procedure -Protonix drip initiated -Diet recommendations per GI -Hemoglobin is stable and normal Marked hypokalemia -Potassium was 3.2 on admission and now 2.3 this morning -Placement in progress -Repeat potassium level following -Check magnesium level -Likely related to excessive GI losses with diarrhea -Placed on telemetry Generalized weakness -Likely related to diarrhea/metabolic disturbances -PT/OT consultation Dementia -Seems to be mild -Monitor DVT prophylaxis -SCDs -We will hold Lovenox with bleeding esophageal ulcer CODE STATUS -Full code Charges/Coding Visit Charges Inpatient E&M: 76695 Subs Hosp L2
[2021-07-07] MEDS: metroNIDAZOLE 500 MG/100 ML BAG 100 MG IV ×2 (14:43→21:02)
[2021-07-07] MEDS: Budesonide 3 MG CAPSULE.EC 9 MG PO (15:53)
[2021-07-07] MEDS: Calcium Carbonate 500 MG Tablet PO (16:59)
[2021-07-07] MEDS: Enoxaparin 40 MG/0.4 ML Syringe SC (17:02)
--- NOTE | 2021-07-07 17:16 | OP.COLON_ITS ---
Patient Name: Kimberly Vergara Procedure Date: 07/07/2021 12:04 PM Date of : 1940 Age: 81 Procedure: Colonoscopy Indications: Clinically significant diarrhea of unexplained origin Providers: Frank Alexis DO Medicines: See the Anesthesia note for documentation of the administered medications Patient Profile: This is an 81 year old female. Refer to note in patient chart for documentation of history and physical. Patient has symptoms of acute epigastric abdominal pain. Last Colonoscopy: date unknown. Unable to locate last colonoscopy report. Complications: No immediate complications. Procedure: Pre-Anesthesia Assessment: - Prior to the procedure, a History and Physical was performed, and patient medications and allergies were reviewed. The risks and benefits of the procedure and the sedation options and risks were discussed with the patient. All questions were answered and informed consent was obtained. Patient identification and proposed procedure were verified by the physician in the pre-procedure area. Mental Status Examination: alert and oriented. Airway Examination: normal oropharyngeal airway and neck mobility. Respiratory Examination: clear to auscultation. CV Examination: normal. Prophylactic Antibiotics: The patient does not require prophylactic antibiotics. Prior Anticoagulants: The patient has taken no previous anticoagulant or antiplatelet agents. After reviewing the risks and benefits, the patient was deemed in satisfactory condition to undergo the procedure. The anesthesia plan was to use moderate sedation / analgesia (conscious sedation). Immediately prior to administration of medications, the patient was re-assessed for adequacy to receive sedatives. The heart rate, respiratory rate, oxygen saturations, blood pressure, adequacy of pulmonary ventilation, and response to care were monitored throughout the procedure. The physical status of the patient was re-assessed after the procedure. After I obtained informed consent, the scope was passed under direct vision. Throughout the procedure, the patient's blood pressure, pulse, and oxygen saturations were monitored continuously. The Colonoscope was introduced through the anus and advanced to the terminal ileum. The colonoscopy was performed without difficulty. The patient tolerated the procedure well. The quality of the bowel preparation was good. Moderate Sedation: Moderate (conscious) sedation was administered by the endoscopy nurse and supervised by the endoscopist. The following parameters were monitored: oxygen saturation, heart rate, blood pressure, and response to care. Total physician intraservice time was 2 minutes. Scope In: 12:14:46 PM Scope Withdrawal Time 0 hours 13 minutes 41 seconds Scope Out: 12:34:03 PM Total Procedure Duration Time 0 hours 19 minutes 17 seconds Findings: The digital rectal exam findings include decreased sphincter tone. A patchy area of granular mucosa was found in the sigmoid colon, in the descending colon, at the splenic flexure and at the hepatic flexure. Biopsies were taken with a cold forceps for histology. Verification of patient identification for the specimen was done. Estimated blood loss was minimal. A 5 mm polyp was found in the sigmoid colon. The polyp was sessile. The polyp was removed with a hot snare. Resection and retrieval were complete. Verification of patient identification for the specimen was done. Estimated blood loss was minimal. The terminal ileum appeared normal. Impression: - Decreased sphincter tone found on digital rectal exam. - Granularity in the sigmoid colon, in the descending colon, at the splenic flexure and at the hepatic flexure. Biopsied. - One 5 mm polyp in the sigmoid colon, removed with a hot snare. Resected and retrieved. - The examined portion of the ileum was normal. Recommendation: - Clear liquid diet today. - Use Uceris (budesonide) 9 mg PO daily daily. - Repeat colonoscopy date to be determined after pending pathology results are reviewed for surveillance based on pathology results. - Continue present medications. Procedure Code(s): --- Professional --- 48301, Colonoscopy, flexible; with removal of tumor(s), polyp(s), or other lesion(s) by snare technique 97659, 59, Colonoscopy, flexible; with biopsy, single or multiple CPT copyright 2017 [employer]. All rights reserved. The codes documented in this report are preliminary and upon shop foreman review may be revised to meet current compliance requirements. Frank Alexis DO 07/07/2021 5:15:37 PM This report has been signed electronically. Number of Addenda: 1 Note Initiated On: 07/07/2021 12:04 PM Addendum Number: 1 Addendum Date: 01/26/2022 6:34:40 AM MAC was used as sedation for this procedure. Frank Alexis DO 01/26/2022 6:34:46 AM This report has been signed electronically.
--- NOTE | 2021-07-07 17:16 | OP.CCLET_ITS ---
01/26/2022 Andreia Re : Colonoscopy procedure for Kimberly Boswell This procedure was performed on Wednesday, July 07, 2021. My impressions and recommendations are as follows: Impressions : - Decreased sphincter tone found on digital rectal exam. - Granularity in the sigmoid colon, in the descending colon, at the splenic flexure and at the hepatic flexure. Biopsied. - One 5 mm polyp in the sigmoid colon, removed with a hot snare. Resected and retrieved. - The examined portion of the ileum was normal. Recommendations : - Clear liquid diet today. - Use Uceris (budesonide) 9 mg PO daily daily. - Repeat colonoscopy date to be determined after pending pathology results are reviewed for surveillance based on pathology results. - Continue present medications. My findings are described in the full procedure note, which is enclosed. If I can be of further assistance, please feel free to contact me at . Sincerely, Frank Alexis, 07/07/2021 5:15:37 PM This report has been signed electronically.
[2021-07-07] MEDS: 0.9% Normal Saline 1,000 ML 50 ML IV (20:19)
[2021-07-08 02:46] VITALS: BP 117/49; PULSE 73; RESP 18; TEMP 36.8; O2SAT 94
[2021-07-08 03:00] VITALS: PULSE 75
[2021-07-08] MEDS: metroNIDAZOLE 500 MG/100 ML BAG 100 MG IV (04:54)
[2021-07-08 06:14] LABS: Absolute Lymphocyte Count 0.97 X10^3/uL (0.83-4.51); Absolute Neutrophil Count 4.8 X10^3/uL (2.0-7.7); Basophil# 0.05 X10^3/uL; Basophil% 0.8 % (0-1); Eosinophil# 0.06 X10^3/uL; Eosinophils% 0.9 % (0-5); Hematocrit 40.2 % (37-47); Hemoglobin 13.3 g/dL (12.0-15.0); Lymphocyte # 0.97 X10^3/ul (0.83-4.51); Lymphocyte % 14.9 % (19-41); Mean Corp Hgb Conc 33.1 g/dL (32-36); Mean Corpuscular Hgb 29.8 pg (27.0-32.0); Mean Corpuscular Volume 90.1 fL (81-99); Monocyte# 0.55 X10^3/uL; Monocyte% 8.5 % (0-10); NRBC Flagged by Analyzer 0 % (0-5); Neutrophil # 4.84 X10^3/uL (2.7-7.7); Neutrophil % 74.4 % (47-70); Platelet Count 180 K/mm3 (150-450); RBC Distribution Width CV 14.2 % (11.6-14.6); RBC Distribution Width SD 46.9 fl (35.1-43.9); Red Blood Count 4.46 M/mm3 (4.2-5.4); White Blood Count 6.5 K/mm3 (4.4-11.0)
[2021-07-08 06:44] LABS: Anion Gap 6 (5-15); BUN 4 mg/dL (7-18); BUN/Creat Ratio 5.5 RATIO (10-20); Calcium,Total 7.6 mg/dL (8.5-10.1); Chloride 114 mmol/L (98-107); Creatinine, Serum 0.73 mg/dL (0.55-1.02); EST Glomerular Filtration Rate 82 mL/min (>60); Est Glom Filt Rate - Afr Amer 99 mL/min (>60); Glucose 116 mg/dL (74-106); Sodium Level 144 mmol/L (136-145)
[2021-07-08 07:16] VITALS: O2SAT 91
[2021-07-08 08:27] VITALS: BP 117/49; PULSE 89; RESP 18; TEMP 36.8; O2SAT 94
[2021-07-08] MEDS: Pantoprazole Sodium 40 MG Tablet PO (08:31)
[2021-07-08] MEDS: Enoxaparin 40 MG/0.4 ML Syringe SC (08:32)
[2021-07-08] MEDS: Calcium Carbonate 500 MG Tablet PO (08:32)
[2021-07-08] MEDS: Potassium Chloride Oral Tablet 20 MEQ 60 MEQ PO (08:32)
[2021-07-08] MEDS: Potassium Chloride Oral Tablet 20 MEQ PO (08:32)
[2021-07-08] MEDS: Menthol/Lanolin/Calamine/Znox 113 GM Tube 1 APPLIC TOPICAL ×2 (08:33→13:56)
[2021-07-08] MEDS: Budesonide 3 MG CAPSULE.EC 9 MG PO (08:34)
[2021-07-08] MEDS: Diphenoxylate/Atrop 1 Tablet 2 TABLET PO (10:11)
--- NOTE | 2021-07-08 11:35 | CASEMGMT ---
Social Work Note MONA spoke with PT/OT. Pt can return to [facility] with HHC. MONA updated physician. MONA spoke with Arturo at [facility]. MONA updated Arturo that pt will be returning to [facility] today. MONA asked Arturo about HHC. Arturo states that an order could be put in for HHC and then they can arrange the therapy once pt returns to [facility]. MONA updated RN CM. MONA spoke with RN, pt to transport via cot. Pt will need GISEL nguyen, RN aware. RN updated this worker that pt's daughter is aware pt will be returning to [facility] today. SW to arrange transportation once discharge is complete. Plan: Return to [facility] with HHC Lizette Weber HELMET BINDER, CAR LUBRICATOR
--- NOTE | 2021-07-08 13:23 | DS.PCM_ITS ---
Providers Date of Admission: 07/07/21 Date of Discharge: 07/08/21 Primary Care Physician: MUKUL ESTRADA Consultations 07/06/21 16:07 Consult: Gastroenterology Routine Consulting Provider: Jesús Gastroenterology Reason for Consult: intractable diarrhea EMERGENT Consult: No MD Notified: Yes Date Notified: 07/06/21 Time Notified: 15:16 Method of Notification: Text Reason For Visit: INTRACTABLE DIARRHEA Diagnosis Discharge Diagnosis (1) Colitis: Status: Acute Code(s): K52.9 - Noninfective gastroenteritis and colitis, unspecified (2) Diarrhea: Status: Acute Code(s): R19.7 - Diarrhea, unspecified (3) Hypokalemia: Status: Acute Code(s): E87.6 - Hypokalemia (4) Generalized weakness: Status: Acute Code(s): R53.1 - Weakness (5) Mural thickening of small intestine: Status: Acute Code(s): K63.9 - Disease of intestine, unspecified (6) Esophageal ulcer: Status: Acute Code(s): K22.10 - Ulcer of esophagus without bleeding Medications at Discharge Home Medications calcium carbonate 600 mg PO BID 07/06/21 calcium citrate 200 mg PO TID 07/06/21 potassium chloride [Klor-Con M20] 20 meq PO DAILY 07/06/21 budesonide 9 mg PO DAILY #30 ea 07/08/21 diphenoxylate-atropine 2 tab PO BID #60 tab 07/08/21 pantoprazole 40 mg PO BID #60 tab 07/08/21 Hospital Course Procedures Colonoscopy and EGD Summary of Care Provided Minutes Spent on Discharge: 41 Hospital Course: Mrs. Vergara is an 81-year-old female who presented to the emergency department from Dr. Alexis's office secondary to worsening diarrhea. She currently lives in assisted living and evidently her diarrhea started approximately 5 months ago. She evidently had been having multiple episodes of loose watery stools daily that she admits to probably 4-5 episodes. She had become markedly weak and was seen at [facility] 3 days prior to presentation here and was placed on oral antibiotics for urinary tract infection. Unfortunately the patient had persistent diarrhea and went to see Dr. Alexis's office however she was having multiple episodes of diarrhea in the office bathroom and was not able to be fully assessed. The daughter reported that she thought maybe her stool was dark or black but the patient had also been taking Pepto-Bismol so the significant of this was on known and she was referred to the emergency department. She denied any issues with nausea or vomiting but did indicate she had lost a significant weight. Her vital signs were stable on presentation. Her CBC was overall unremarkable. Her BMP showed hypokalemia with potassium of 3.2 and her serum creatinine was normal at 0.77. A UA was performed and showed no evidence of urinary tract infection. A CT of the abd omen pelvis given her issues with diarrhea was performed and showed diffuse thickening of the small bowel wall that was more prominent in the jejunal loops with findings in keeping with colitis of the left hemicolon. A lactic acid was assessed given these findings and was found to be normal. She was admitted to the medical floor and placed on IV fluids. The case was discussed with the gastroenterology and they requested the initiation of IV steroids and started her on ciprofloxacin and Flagyl. She was prepped for colonoscopy and taken for an EGD and colonoscopy on 07/07/2021. The EGD showed a bleeding esophageal ulcer that was spurting upon evaluation, a medium size hiatal hernia and a normal first portion of the duodenum. The ulceration was injected with 3 cc of epinephrine and heater probe was used for coagulation. Hemostasis was achieved and the patient was recommended to be on Protonix 40 mg p.o. twice daily. Her colonoscopy was then performed and examination revealed decreased sphincter tone found on digital rectal exam with granularity in the sigmoid colon, descending colon and it the splenic and hepatic flexures. These areas were biopsied. There was also a 1 5 mm polyp in the sigmoid colon that was removed with hot snare. Specimens were sent to pathology and were pending upon discharge. With these findings her IV steroids were transitioned to budesonide 9 mg p.o. daily and follow-up colonoscopy was recommended after pathology results are reviewed and resulted. Gastroenterology has high's position that she has collagenous colitis. Upon reevaluation on 07/08/2021 she had no further episodes of diarrhea and her electrolytes had improve dramatically. She was tolerating p.o. diet without any issues. At that time is felt she was stable for discharge back to her skilled living environment. She was evaluated by physical therapy and Occupational Therapy and they thought that this transition was appropriate with continued home health care upon discharge. She was discharged back to her assisted living environment in stable condition with recommended follow-up with her PCP in [address] Alexis within the next 2 weeks. She is to call his office for follow-up in the future. His information was given upon discharge paperwork. Discharge diagnoses: Esophageal ulcer Suspected collagenous colitis Diarrhea-resolved Hypokalemia Generalized weakness Dementia Physical Exam Const alert, oriented x3, no apparent distress and average body habitus Constitutional Narrative: Elderly white female sitting up in a chair at the bedside, nursing at the bedside, appears comfortable nontoxic, mood is much more upbeat and jovial today General Appearance: cooperative, comfortable, well kempt and well developed Orientation / Consciousness: awake Exam Limitations: no limitations Nutritional Appearance: thin HEENT normocephalic, head/scalp atraumatic and moist oral mucous membranes HEENT Narrative: Dentition is fair, Mallampati is 2, hearing is fair Eyes PERRL, EOMs intact bilaterally and conjunctivae normal Eyes Narrative: No scleral icterus Neck no lymphadenopathy, supple and no JVD Neck Narrative: Trachea midline, no thyroid enlargement Resp normal respiratory effort, no retractions, no use of accessory muscles and clear to auscultation bilaterally Auscultation: Negative for crackles, rales, rhonchi or wheezes Cardio regular rate, regular rhythm, S1 normal heart sound, S2 normal heart sound, no murmurs, no rub, no gallops, no clicks and no JVD GI normal to inspection, nondistended, normoactive bowel sounds, soft to palpation, non-tender and non-distended; Negative for hepatosplenomegaly Extremity normal to inspection, full ROM and no clubbing, cyanosis or edema Skin no rashes or lesions noted Skin Narrative: Pedal pulses are 2+ Neuro oriented x3, CN's II-XII intact bilaterally, moves all extremities and no focal motor deficits Neuro Narrative: Mild generalized weakness-proximal greater than distal Sensorium / Orientation: awake and alert Speech: speech normal Psych affect normal Psych Narrative: Patient is much more interactive and happy appearing today Weight / BMI Weight Weight: 56.5 kg Body Mass Index (BMI) 22.0 ABG / Lab / Microbiology Data Result Diagrams: 07/08/21 05:22 07/08/21 05:22 Laboratory: Laboratory Results - last 24 hr 07/08/21 05:22: WBC 6.5, RBC 4.46, Hgb 13.3, Hct 40.2, MCV 90.1, MCH 29.8, MCHC 33.1, RDW Std Deviation 46.9 H, RDW Coeff of Jens 14.2, Plt Count 180, MPV 11.0, Immature Gran % (Auto) 0.500, Neut % (Auto) 74.4 H, Lymph % (Auto) 14.9 L, [place] % (Auto) 8.5, Eos % (Auto) 0.9, Baso % (Auto) 0.8, Absolute Neuts (auto) 4.8, Absolute Lymphs (auto) 0.97, Nucleated RBC % 0 07/08/21 05:22: Sodium 144, Potassium 3.0 L, Chloride 114 H, Carbon Dioxide 24.0, Anion Gap 6, BUN 4 L, Creatinine 0.73, Estim Creat Clear Calc 36.50, Est GFR (MDRD) Af Amer 99, Est GFR (MDRD) Non-Af 82, BUN/Creatinine Ratio 5.5 L, Glucose 116 H, Calcium 7.6 L Microbiology: Microbiology 07/08/21 11:15 Nasal Secretion SARS-CoV-2 Antigen (Rapid) - Final 07/06/21 22:05 Stool C. difficile DNA Amplification - Final 07/06/21 22:05 Stool Stool Lactoferrin - Final 07/06/21 22:05 Stool Stool Occult Blood (JACK) - Final D/C Instructions Discharge Diet: No restrictions Discharge Activity: Return to Normal Activity Additional Instructions: Patient will need physical therapy and occupational therapy upon discharge via home health care Meaningful Use Info Meaningful Use Diagnoses (Choose all that apply): None applicable Discharge Plan Admission Admit Date/Time: 07/07/21 09:37 Primary Reason for Your Visit: Diarrhea Attending Provider: Tonja Ramires Instructions Additional Instructions / Restrictions: Please call below physicians to make follow-up appointments Discharge Orders/Prescriptions Prescriptions: New budesonide 3 mg Capsule,Delayed,Extend.Release 9 mg PO DAILY Qty: 30 RF: 1 diphenoxylate-atropine 2.5-0.025 mg Tablet 2 tab PO BID Qty: 60 RF: 0 pantoprazole 40 mg Tablet,Delayed Release (Dr/Ec) 40 mg PO BID Qty: 60 RF: 0 Continued calcium carbonate 600 mg calcium (1,500 mg) Tablet 600 mg PO BID RF: 0 potassium chloride [Klor-Con M20] 20 mEq Tablet,Er Particles/Crystals 20 meq PO DAILY RF: 0 calcium citrate 200 mg (950 mg) Tablet 200 mg PO TID RF: 0 Discontinued metronidazole [Flagyl] 500 mg Tablet 500 mg PO Q12H RF: 0 ciprofloxacin HCl [Cipro] 500 mg Tablet 500 mg PO Q12H RF: 0 Referrals / Follow Up: MUKUL ESTRADA [Other] - Within 2 Weeks MUKUL ESTRADA [Other] FriendFrank DO [STAFF PHYSICIAN] - Within 2 Weeks (call office tomorrow for appt--> Hospital followup) Disposition Disposition (needs filled in before D/C Order can be placed): Assisted Living Charges/Coding Visit Charges Inpatient E&M: [id number] [facility]
[2021-07-08 14:10] LABS: Anti-Centromere B Ab <0.2 AI (0.0-0.9); Anti-Chromatin <0.2 AI (0.0-0.9); Anti-Jo <0.2 AI (0.0-0.9); Anti-Scleroderma-70 AB <0.2 AI (0.0-0.9); RNP Ab <0.2 AI (0.0-0.9); SJOGREN'S Anti-SS-A test < 0.2 AI (0.0-0.9); SJOGREN'S Anti-SS-B test < 0.2 AI (0.0-0.9); Smith Ab <0.2 AI (0.0-0.9)
[2021-07-08 14:26] VITALS: BP 97/48; PULSE 83; RESP 18; TEMP 36.4; O2SAT 95
--- NOTE | 2021-07-08 14:28 | NURSING ---
ANNALISA Mtz notified of BP 97/48. Patient sitting up in chair, alert. Denies dizziness, lightheadedness. Chair alarm on, call light within reach.
--- NOTE | 2021-07-08 14:45 | CASEMGMT ---
Social Work Note MONA faxed discharge paperwork to [facility] including COVID test and tool. SW accessed trip assist and arranged transportation via cot for 4:00pm. Transportation form completed and placed on SNF folder and copy on pt's chart. MONA updated RN on transportation time. SW in to speak with pt. SW updated pt that she will returning to [facility] today. MONA placed a call to [facility] and updated Arturo on discharge and transportation time. MONA placed a call to pt's daughter Deanna and updated her that PT/OT stated pt could return to [facility] with [facility] and pt will be returning to [facility] today at 4:00pm. MONA informed Deanna that PT/OT was ordered for pt and [facility] stated they could arrange PT/OT for pt at [facility]. Deanna with medical questions regarding results of Colonoscopy. MONA checked with RN, Deanna will need to call physician that completed Coloscopy for results. MONA updated Deanna that she will need to call the physician that completed the Colonoscopy to get results. Deanna states understanding. Plan: Return to [facility] with orders for PT/OT Lizette Weber OPERATIONS LIAISON, FACILITIES ENGINEERING MANAGER
[2021-07-08 15:07] LABS: Anti-dsDNA Ab 1 IU/mL (0-9)
--- NOTE | 2021-07-08 15:26 | CHAPLAIN ---
Type of Pastoral Visit _x__ Initial Visit ___ Follow-up Visit ___ On-call Visit ___ General Patient Visit ___ Spiritual Assessment ___ Family Conference ___ Bereavement ___ Rapid Response ___ Code Blue ___ Other (describe below) Pastoral Care Referral From _x__ Patient ___ Family ___ Nurse ___ Physician ___ Data Architect ___ Hunter Skin Diver ___ Other (describe below) Sacrament/Intervention _x__ Active listening ___ Anointing ___ Anabaptism ___ Bereavement ___ Communion ___ Lary exploration ___ ___ Life review _x__ Prayer ___ Reconciliation ___ Sacrament of Sick _x__ Supportive presence ___ Wedding ___ Other (describe below) Pastoral Comments patient is sitting up in chair and alert; pt is pleasant and welcoming; pt reports good resolution to her health need and thankful to DR; pt smiles often in conversation; affirm patient for support; offered a prayer; no other concerns
--- NOTE | 2021-07-08 16:06 | NURSING ---
pt to [facility] Brambila via cot
[2021-07-11 18:07] LABS: Immunoglobulin A 92 mg/dL (64-422); Immunoglobulin G 607 mg/dL (586-1602); Immunoglobulin M 59 mg/dL (26-217)
[2021-07-11 23:02] LABS: Immunoglobulin E 43 IU/mL (6-495)
== END 2021-07-08 16:00 | disposition home or self-care (01) | DRG 391 ==
LOC: ED 14:59 → MS3 15:22
PROVIDERS: Family Medicine; Internal Medicine Gastroenterology; Admitting Provider Student in an Organized Health Care Education/Training Program; Emergency Provider Emergency Medicine; Visit Provider Internal Medicine
PROC: 0DJD8ZZ Inspection of Lower Intestinal Tract, Via Natural or Artificial Opening Endoscopic (ICD-10-PCS; CPT 45378; principal; 2021-07-07 11:25)
DX: K52.831 Collagenous colitis (principal); K22.11 Ulcer of esophagus with bleeding; F03.90 Unspecified dementia, unspecified severity, without behavioral disturbance, psychotic disturbance, mood disturbance, and anxiety; E87.6 Hypokalemia; F17.210 Nicotine dependence, cigarettes, uncomplicated; K63.5 Polyp of colon; K44.9 Diaphragmatic hernia without obstruction or gangrene; Z66 Do not resuscitate
CPT/HCPCS: 36415; 74177; 80048; 80053; 81001; 82274; 82784; 82785; 83605; 83615; 83630; 83690; 83735; 85025; 85652; 86140; 86225; 86235; 87426; 87493; 88305; 88313; 97110; 97162; 97166; 97530; 97535; 97802; 99283; 99406; J7030; Q9967; A4216; J0744; J3490

== ENCOUNTER 2021-07-21 11:10 | Outpatient (CLI) | payer MEDICARE, MEDICAID, SELFPAY ==
[2021-07-21 11:33] LABS: Absolute Lymphocyte Count 1.42 X10^3/uL (0.83-4.51); Absolute Neutrophil Count 5.3 X10^3/uL (2.0-7.7); Basophil# 0.05 X10^3/uL; Basophil% 0.7 % (0-1); Eosinophil# 0.07 X10^3/uL; Eosinophils% 0.9 % (0-5); Hematocrit 41.9 % (37-47); Hemoglobin 14.1 g/dL (12.0-15.0); Lymphocyte # 1.42 X10^3/ul (0.83-4.51); Lymphocyte % 18.8 % (19-41); Mean Corp Hgb Conc 33.7 g/dL (32-36); Mean Corpuscular Hgb 30.9 pg (27.0-32.0); Mean Corpuscular Volume 91.7 fL (81-99); Monocyte# 0.72 X10^3/uL; Monocyte% 9.5 % (0-10); NRBC Flagged by Analyzer 0 % (0-5); Neutrophil # 5.28 X10^3/uL (2.7-7.7); Neutrophil % 69.8 % (47-70); Platelet Count 206 K/mm3 (150-450); RBC Distribution Width CV 14.4 % (11.6-14.6); Red Blood Count 4.57 M/mm3 (4.2-5.4); White Blood Count 7.6 K/mm3 (4.4-11.0)
[2021-07-21 12:05] LABS: AST(SGOT) 17 U/L (15-37); Alanine Aminotransfer ALT/SGPT 15 U/L (13-56); Alkaline Phosphatase 55 U/L (45-117); Anion Gap 4 (5-15); BUN 8 mg/dL (7-18); BUN/Creat Ratio 10.2 RATIO (10-20); Calcium,Total 8.3 mg/dL (8.5-10.1); Chloride 109 mmol/L (98-107); Creatinine, Serum 0.79 mg/dL (0.55-1.02); EST Glomerular Filtration Rate 75 mL/min (>60); Est Glom Filt Rate - Afr Amer 90 mL/min (>60); Ferritin 24 ng/mL (8-252); Globulin 3.1 g/dL (2.2-4.2); Glucose 96 mg/dL (74-106); Iron 34 ug/dL (50-170); Iron Binding Capacity,Total 280 ug/dL (250-450); PERCENT IRON SATURATION 12.1 % (15.0-55.0); Potassium 3.3 mmol/L (3.5-5.1); Protein, Total 6.1 g/dL (6.4-8.2); Sodium Level 142 mmol/L (136-145)
== END 2021-07-21 23:59 | disposition home or self-care (01) ==
PROVIDERS: Referring Provider Internal Medicine Gastroenterology; Visit Provider Internal Medicine Gastroenterology
DX: R19.7 Diarrhea, unspecified (principal); D64.9 Anemia, unspecified
CPT/HCPCS: 36415; 80053; 82728; 83540; 83550; 85025

== ENCOUNTER 2022-06-01 08:14 | Day surgery (SDC) | payer MEDICARE, MEDICAID, SELFPAY ==
[2022-06-01] VITALS (7 sets, daily range): BP systolic 90–121; BP diastolic 41–62; PULSE 57–64; RESP 16–17; TEMP 36.4–36.7; O2SAT 93–96; BMI 23.4
--- NOTE | 2022-06-01 | IMM_PTH ---
PATIENT: ABRAHAM VALENZUELA LOC: EN U#:[id number] AGE/SX: 81/F ROOM: RE06/01/[address]: Dr. Frank Alexis DO : 1940 BED: DIS: 06/01/2022 SPEC #: [id number] RECD: 06/02/22 14:30 STATUS: WENDI REBev #: [id number] BETI: 06/01/22 00:[address]: Frank Alexis DEPT: IMMUNOHISTOCHEMISTRY RECD BY: Liya Breaux ENTERED: 06/02/22 14:31 SP TYPE: IMMUNO OTHR DR: Dr. Laine Juarez MD Tissues: A - Esophageal mucous membrane B - Esophageal mucous membrane C - Esophageal mucous membrane Procedures: P53 (initial) KI-67 (add) PHYSICIAN & INSTITUTION [place] [id number] SPECIMEN INFORMATION: Tissue Source: A - Distal esophageal ulcer, B - Proximal esophageal biopsy, C - Proximal esophageal ulcer Clinical Info: Gastroparesis; history of esophageal ulcer Specimen Number: [id number] A-C CPT code: 18064 x3, 06403 x3 METHODOLOGY: Deparaffinized sections of prefer/formalin-fixed tissue or PAP/DQ stained slides are incubated with monoclonal/polyclonal antibodies/oligonucleotide probes. Localization is made via biotin free immunoperoxidase method. Appropriate controls are performed and reacted as expected. Results on target cell population are indicated in the following table: RESULTS: ANTIBODY / CLONE RESULT Block A P53 (DO-7) negative Ki-67 (30-9) positive, low Block B P53 (DO-7) positive, rare cells Ki-67 (30-9) positive, low Block C P53 (DO-7) negative Ki-67 (30-9) positive, low These tests were developed and their performance characteristics determined by [facility]. They may not have been cleared or approved by the U.S. Food and Drug Administration. The FDA has determined that such clearance or approval is not necessary. The above immunohistochemical/dualISH markers are ordered and reviewed by the Pathologist. INTERPRETATION: A. Distal esophageal ulcer, biopsy: Negative for dysplasia. B. Proximal esophageal biopsy: Negative for dysplasia. C. Proximal esophageal ulcer, biopsy: Negative for dysplasia. SJ:dru 06/03/2022
[2022-06-01] MEDS: Lactated Ringers 1,000 ML 15 ML IV (08:35)
--- NOTE | 2022-06-01 08:35 | PCM.HP.BLA ---
History and Physical Date of Admission: 06/01/22 81 F who presents to the office today for Follow up visit. Kimberly established with this clinic 3 with urgent diarrhea causing incontinence, weight loss. She went from the clinic to the ED department for dark and uncontrollable bowel movement and was admitted to [facility]. During hospitalization she had EGD and colonoscopy performed. She was discharged 07.07.21 following treatment of colitis, diarrhea, hypokalemia and esophageal ulcer. EGD and colonoscopy performed 07.07.21. EGD found bleeding esophageal ulcers, treated with heater probe; medium-sized hiatal hernia. No specimens collected. Colonoscopy found decreased sphincter tone; granularity in sigmoid colon, descending colon, splenic flexure and hepatic flexure; rectal prolapse; one 5mm polyp removed. Plan LV 10.15.21: Diarrhea ? doing well with budesonide as previously prescribed. Continue this and PPI therapy. Since LV she has had hospitalization for fall with head strike and another for rectal and vaginal bleeding; hospitalized at [place]. CT performed noting an ulcer. In the last several weeks she has been having increased difficulty with sour belching without chest pain/burning. Parkinson?s has been progressing as of late. ROS Const Constitutional: Positive for weight change; No fatigue ENT ENT: No difficulty swallowing Gastro GI: No abdominal pain, belching, bloating, change in bowel habits, change in stool character, coffee ground emesis, constipation, cramping, diarrhea, heartburn, difficulty swallowing, feeling full early, excessive flatus, incontinent of stools, Vomiting blood/hematemesis, Blood in stool, loose stools, Black,tarry stools, nausea/dyspepsia, pain with swallowing, vomiting or other Musc Musculoskeletal: No joint pain Skin Skin: No yellowing of the eye or itchy eyes Psych Psychiatric: No anxiety and No depression Endo Endocrine: Positive for weight change; No fatigue Aller/Imm Allergy/Immunologic: No itchy eyes Oswaldo/Lymp Hematologic/Lymphatic: No easy bleeding or easy bruising Exam Const General: cooperative and comfortable Nutritional Appearance: average body habitus and well nourished [facility] Head: normal to inspection Ears: hearing grossly normal bilaterally Nose: external nose normal Face and sinus: normal facial exam Mouth: oral mucosae normal Throat: posterior oropharynx normal Eyes General: appearance normal, both eyes and all related structures Neck Neck: normal visual inspection Chest Chest palpation & inspection: normal inspection of the chest and normal palpation of entire chest wall Resp Effort & Inspection: normal respiratory effort Auscultation: Bilateral: Clear to Auscultation Cardio Palpation: normal PMI Rate: regular rate Rhythm: regular rhythm GI Inspection: normal to inspection Auscultation: normal bowel sounds Percussion: normal to percussion Palpation: no hepatosplenomegaly Skin General: no rashes or lesions noted Neuro General: patient alert Extrem General: normal to inspection Psych Affect: normal affect Quality Reporting Tobacco Screening ([facility] 138) Smoking Status: Current some day smoker Assessment and Plan Assessment and Plan (1) Diarrhea: ?Status:?Chronic ?Plan: Diarrhea is secondary to microscopic colitis. She is doing very well with Budesonide therapy. We will continue that medication at this time. (2) Belching: ?Status:?Chronic ?Plan: I think she is experiencing symptoms of gastroparesis possibly secondary to her Parkinson's medicines.? She has a history of esophageal ulcer complicated by small Velma-Brown tear.? Continue her on PPI therapy we will perform an upper endoscopy to evaluate upper GI tract. I have examined the patient and the H&P has been reviewed. There are no clinical changes since date of exam.
--- NOTE | 2022-06-01 09:15 | EGD_PTH ---
PATIENT: ABRAHAM VALENZUELA LOC: EN U#:[id number] AGE/SX: 81/F ROOM: RE06/01/[address]: Dr. Frank Alexis DO : 1940 BED: DIS: 06/01/2022 SPEC #: [id number] RECD: 06/01/22 11:50 STATUS: WENDI REBev #: [id number] BETI: 06/01/22 09:[address]: Frank Alexis DEPT: SURGICAL PATHOLOGY RECD BY: Alvina Vasquez ENTERED: 06/01/22 13:47 SP TYPE: EGD BIOPSY [facility] DR: Dr. Laine Juarez MD Tissues: A - Esophageal mucous membrane B - Esophageal mucous membrane C - Esophageal mucous membrane Procedures: Special Stain Group II Surgery Specimen Level IV Alcian Blue/PAS (control) HEADER OPERATION: EGD (MAC) and biopsy PRE-OP DIAGNOSIS: Gastroparesis, history of esophageal ulcer TISSUE SUBMITTED: A - Distal esophageal ulcer, B - Proximal esophageal biopsy, C - Proximal esophageal ulcer MICROSCOPIC DIAGNOSIS A. 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 Chronic inflammation. Negative for dysplasia. See comment. B. 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 Focal ulceration, chronic inflammation and reactive changes. See comment. C. 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 Focal ulceration, acute and chronic inflammation and reactive changes. See comment. SJ:rg 06/02/2022 COMMENT A-C. Alcian blue/PAS stain with matched control is used in the evaluation of the specimen. Immunohistochemistry ([id number]) for P53 and Ki-67 will be performed and results will be reported separately. MICROSCOPIC DESCRIPTION Slides are reviewed. GROSS DESCRIPTION A - Received in fixative is one container labeled with the patient's name and designated distal esophageal ulcer. The specimen consists of one irregular fragment of light somers soft tissue that measures 1.5 x 0.4 x 0.1 cm. The specimen is totally submitted in one cassette. B - Received in fixative is one container labeled with the patient's name and designated proximal esophagus biopsy. The specimen consists of one irregular fragment of light somers soft tissue that measures 0.4 x 0.4 x 0.1 cm. The specimen is totally submitted in one cassette. C - Received in fixative is one container labeled with the patient's name and designated proximal esophageal ulcer. The specimen consists of two irregular fragments of light somers soft tissue that in aggregate measure 0.4 x 0.2 x 0.1 cm. The specimen is totally submitted in one cassette. / SJ:dru 06/01/2022 TC:2 CPT: 90574 x3, 38072 x3
--- NOTE | 2022-06-01 09:46 | OP.EGD_ITS ---
Patient Name: Kimberly Vergara Procedure Date: 06/01/2022 9:19 AM Date of : 1940 Age: 81 Procedure: Upper GI endoscopy Indications: Dysphagia, Heartburn, Hematemesis Providers: Frank Alexis DO Medicines: Monitored Anesthesia Care Patient Profile: This is an 81 year old female. Refer to note in patient chart for documentation of history and physical. Patient has symptoms of acute dysphagia, chronic heartburn, chronic nausea and chronic regurgitation. Complications: No immediate complications. Procedure: Pre-Anesthesia Assessment: - Prior to the procedure, a History and Physical was performed, and patient medications and allergies were reviewed. The patient is competent. The risks and benefits of the procedure and the sedation options and risks were discussed with the patient. All questions were answered and informed consent was obtained. Patient identification and proposed procedure were verified by the physician in the pre-procedure area. Mental Status Examination: alert and oriented. Airway Examination: normal oropharyngeal airway and neck mobility. Respiratory Examination: clear to auscultation. CV Examination: normal. Prophylactic Antibiotics: The patient does not require prophylactic antibiotics. Prior Anticoagulants: The patient has taken no previous anticoagulant or antiplatelet agents. ASA Grade Assessment: III - A patient with severe systemic disease. After reviewing the risks and benefits, the patient was deemed in satisfactory condition to undergo the procedure. The anesthesia plan was to use monitored anesthesia care (MAC). Immediately prior to administration of medications, the patient was re-assessed for adequacy to receive sedatives. The heart rate, respiratory rate, oxygen saturations, blood pressure, adequacy of pulmonary ventilation, and response to care were monitored throughout the procedure. The physical status of the patient was re-assessed after the procedure. After obtaining informed consent, the endoscope was passed under direct vision. Throughout the procedure, the patient's blood pressure, pulse, and oxygen saturations were monitored continuously. The gastroscope was introduced through the mouth, and advanced to the second part of duodenum. The upper GI endoscopy was accomplished without difficulty. The patient tolerated the procedure well. Scope In: 9:27:38 AM Scope Out: 9:34:26 AM Total Procedure Duration Time 0 hours 6 minutes 48 seconds Findings: A moderate Schatzki ring was found in the upper third of the esophagus. A guidewire was placed and the scope was withdrawn. Dilation was performed with a Savary dilator with no resistance at 45 Fr. The dilation site was examined and showed moderate improvement in luminal narrowing. LA Grade B (one or more mucosal breaks greater than 5 mm, not extending between the tops of two mucosal folds) esophagitis with bleeding was found 23 to 25 cm from the incisors. Biopsies were taken with a cold forceps for histology. Verification of patient identification for the specimen was done. Coagulation for hemostasis using heater probe was successful. Estimated blood loss was minimal. Three cratered esophageal ulcers with no bleeding and no stigmata of recent bleeding were found 24 to 25 cm from the incisors. The largest lesion was 4 mm in largest dimension. Biopsies were taken with a cold forceps for histology. Verification of patient identification for the specimen was done. Estimated blood loss was minimal. Two cratered esophageal ulcers with no bleeding and no stigmata of recent bleeding were found 33 to 34 cm from the incisors. The largest lesion was 4 mm in largest dimension. Biopsies were taken with a cold forceps for histology. Verification of patient identification for the specimen was done. Estimated blood loss was minimal. A medium-sized hiatal hernia was present. The cardia and gastric fundus were normal on retroflexion. No other significant abnormalities were identified in a careful examination of the stomach. The first portion of the duodenum was normal. Impression: - Moderate Schatzki ring. Dilated. - LA Grade B erosive esophagitis. Biopsied. Treated with a heater probe. - Non-bleeding esophageal ulcers. Biopsied. - Non-bleeding esophageal ulcers. Biopsied. - Medium-sized hiatal hernia. - Normal first portion of the duodenum. Recommendation: - Discharge patient to home. - Resume previous diet. - Use Protonix (pantoprazole) 40 mg PO BID for the rest of the patient's life. - Continue present medications. Procedure Code(s): --- Professional --- 17059, 59, Esophagogastroduodenoscopy, flexible, transoral; with control of bleeding, any method 14681, Esophagogastroduodenoscopy, flexible, transoral; with insertion of guide wire followed by passage of dilator(s) through esophagus over guide wire 95918, 59,51, Esophagogastroduodenoscopy, flexible, transoral; with biopsy, single or multiple CPT copyright 2017 [employer]. All rights reserved. The codes documented in this report are preliminary and upon organic chemistry professor review may be revised to meet current compliance requirements. Frank Alexis DO 06/01/2022 9:46:09 AM This report has been signed electronically. Number of Addenda: 0 Note Initiated On: 06/01/2022 9:19 AM
== END 2022-06-01 11:13 | disposition home or self-care (01) ==
LOC: EN 08:16 → AC 08:18
PROVIDERS: PCP Internal Medicine; Referring Provider Internal Medicine; Visit Provider Internal Medicine Gastroenterology
PROC: 0DJ08ZZ Inspection of Upper Intestinal Tract, Via Natural or Artificial Opening Endoscopic (ICD-10-PCS; CPT 43235; principal; 2022-06-01 09:10)
DX: K22.10 Ulcer of esophagus without bleeding (principal); K52.839 Microscopic colitis, unspecified; R13.10 Dysphagia, unspecified; F17.200 Nicotine dependence, unspecified, uncomplicated; R12 Heartburn; K44.9 Diaphragmatic hernia without obstruction or gangrene
CPT/HCPCS: 43239; 43248; 43255; 88305; 88313; 88341; 88342; J7120; J2405

== ENCOUNTER → 2022-10-19 | Outpatient (CLI) | payer MEDICARE, MEDICAID, SELFPAY ==
--- NOTE | 2022-10-19 14:12 | RAD_ITS ---
EXAM: XR ABDOMEN, 1 VIEW CLINICAL INDICATION: abd pain TECHNIQUE: Frontal supine view of the abdomen/pelvis. COMPARISON: No relevant prior studies available. FINDINGS: LOWER THORAX: No acute pathology. GASTROINTESTINAL TRACT: Unremarkable. Non-obstructive. No bowel or stomach distention. Normal bowel gas pattern. ORGANS: Unremarkable as visualized. No organomegaly. No abnormal calcifications. BONES/JOINTS: Degenerative changes of the spine and acromioclavicular joints. Right hip arthroplasty with satisfactory alignment and no complications. Moderate left hip osteoarthrosis. SOFT TISSUES: See below. VASCULATURE: Phleboliths project over the inferior left pelvis. Atherosclerotic vascular calcifications in the groin regions bilaterally. RAD/Abdomen Single View IMPRESSION: 1. No acute osseous abnormalities or malalignment. 2. Normal bowel gas pattern. 3. No other significant pathology. Electronically Signed: Rusty Sellers MD at 3:14 EDT Reading Location ID and State: [facility] / [place] Tel , Service support ,
== END | disposition home or self-care (01) ==
LOC: RAD 14:10
PROVIDERS: PCP Internal Medicine; Referring Provider Internal Medicine Gastroenterology; Visit Provider Internal Medicine Gastroenterology
DX: R19.7 Diarrhea, unspecified (principal)
CPT/HCPCS: 74018

== ENCOUNTER → 2022-11-15 | Outpatient (CLI) | payer MEDICARE, MEDICAID, SELFPAY ==
--- NOTE | 2022-11-15 14:31 | CT_ITS ---
STUDY: CT ABDOMEN AND PELVIS WITH CONTRAST - URINARY TRACT REASON FOR EXAM: Female, 82 years old. Abdominal pain and weight loss with diarrhea -- oral and iv RADIATION DOSAGE (If Supplied By Facility): CTDIvol = ( 10.35 ) mGy, DLP = ( 404.96 ) mGycm TECHNIQUE: IV 100mL Isovue-300 was administered. Transaxial images were obtained from the dome of the diaphragm to the symphysis pubis in the arterial, nephrographic and excretory phases. Multiplanar coronal and sagittal images were reformatted. Individualized Dose Optimization Techniques Were Used For This CT. COMPARISON: AP supine view of the abdomen and pelvis on 2 plain films October 19, 2022; CT abdomen and pelvis July 06, 2021 FINDINGS: The visualized lung bases are unremarkable. The visualized portions of the heart are within normal limits. Normal liver. The patent portal vein diameter is 11.7 mm. The gallbladder is partially contracted. The extrahepatic bile duct remains ectatic, measuring up to 1.55 cm. No significant intrahepatic biliary ductal ectasia. Well-defined, rounded 3 x 3.1 x 2.5 cm hypodensity at the anterior margin of the lateral aspect of the spleen, consistent with a cyst, is unchanged. A second 1 cm hypodensity in the upper aspect of the spleen, possibly a second cyst, is also unchanged. 1.2 cm accessory spleen anterior to the lateral lower pole the spleen also stable Stable mild to moderate pancreatic atrophy. Normal bilateral adrenal glands. A hiatal hernia containing the fundus and upper body of the stomach is borderline increased in size from previous study. Normal small intestine. Occasional diverticula noted in the left colon. The appendix is visualized and appears normal. Moderate atherosclerotic calcific plaquing of the abdominal aorta unchanged. There is 60% diameter narrowing at the takeoff of the left renal artery No retroperitoneal adenopathy. Normal right kidney. Normal left kidney. No hydronephrosis. Lobulated contour of urinary bladder due to numerous mural diverticula. The largest is along the right posterior margin of the bladder, measuring 3 x 1.75 x 2.65 cm. There is uterine atrophy versus prior supracervical hysterectomy. There is minor fluid distention of the residual endometrial canal. There is a small midline anterior abdominal wall defect and small herniation of fat at the level of the umbilicus. There is stable multilevel degenerative changes of the spine, with disc height narrowing most severe at L4-5, while facet arthropathy is most prominent on the left at L5-S1. Patient has undergone prior right total hip arthroplasty, and a metal bipolar hip prosthesis is present. CT/Abdomen/Pelvis WITH Contrast IMPRESSION: 1. Hiatal hernia containing fundus and upper body of the stomach is borderline increased from prior study. 2. The gallbladder is partially contracted. The extra hepatic bile duct again is ectatic. 3. Stable splenic cyst. 4. Atherosclerotic calcific plaquing of the abdominal aorta. 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 5. Lobulated contour of urinary bladder due to numerous mural diverticula. No hydronephrosis. 6. Stable small midline, fat-containing umbilical abdominal wall hernia. 7. Stable degenerative changes of the spine. Patient has undergone prior right total hip arthroplasty. Electronically Signed: Thanh Haji MD at 15:58 EDT Reading Location ID and State: [id number] / Unknown , Service support ,
[2022-11-15 15:25] LABS: CREATININE FINGERSTICK 1.1 mg/dL (0.55-1.02)
== END | disposition home or self-care (01) ==
LOC: CT 14:31
PROVIDERS: PCP Internal Medicine; Referring Provider Internal Medicine Gastroenterology; Visit Provider Internal Medicine Gastroenterology
DX: K57.50 Diverticulosis of both small and large intestine without perforation or abscess without bleeding (principal)
CPT/HCPCS: 74177; Q9967